=== PATIENT | female | born 2005 | race Caucasian/White ===

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

== ENCOUNTER 2023-07-22 09:38 | Outpatient (CLI) | payer OTHER ==
[~2023-07-22] VITALS: Ht 167.6 cm; Wt 81.5 kg
[~2023-07-22 09:38] MED LIST: MULTTAB20 PO
[2023-07-22 10:01] VITALS: BP 110/55
== END 2023-07-22 12:10 | disposition home or self-care (01) ==
LOC: M LDO 09:38
PROVIDERS: ATTEND Advanced Practice Midwife
DX: O26.893 Other specified pregnancy related conditions, third trimester (principal); R60.0 Localized edema; Z3A.37 37 weeks gestation of pregnancy
CPT/HCPCS: 59025; 93971; G0463

== ENCOUNTER → 2023-08-27 | Outpatient (CLI) | payer OTHER | LOC: M WHC 14:32 | PROVIDERS: ATTEND Obstetrics & Gynecology | DX: R10.9 Unspecified abdominal pain (principal) ==